=== PATIENT | male | born 1995 | race Caucasian/White ===

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

== ENCOUNTER 2017-05-12 08:44 | Emergency (ER) | payer OTHER ==
[2017-05-12 09:06] VITALS: BP 143/81
[2017-05-12] MEDS ORDERED: DIPHTH,PERTUSS(ACELL),TET VAC 0.5 ML VIAL IM ONE ×2 (09:06→09:15)
--- NOTE | 2017-05-12 10:16 | ERNOTE ---
Medical Problem HPI - Narrative Date of Service: 05/12/17 - General Chief Complaint: Laceration Time Seen by Provider: 05/12/17 09:50 Source: patient Exam Limitations: no limitations - Immun/Allergies/Home Medications Immunizations: IMMUNIZATION HX Immunizations Up to Date Yes Allergies/Adverse Reactions: Allergies No Known Allergies Allergy (Verified 05/12/17 09:05) Home Medications: HOME MEDICATIONS NK [No Home Medication] 07/28/13 [Last Taken Unknown] - History of Present History Narrative: Pt. comes in with c/o L lateral laceration to his Thumb due to a straight knife at work. Pt. denies any SOB, CP, NVD, fever, recent illness. Pt. states that he is not up to date on his tetanus vaccine. Review of Systems - Review of Systems Constitutional: Present: no symptoms reported. Absent: recent illness, fever, chills, weakness, fatigue, malaise, weight loss EYE: Present: no symptoms reported ENT: Present: no symptoms reported Respiratory: Present: no symptoms reported. Absent: shortness of breath, cough , wheezing Cardiology: Present: no symptoms reported. Absent: chest pain, palpitations, edema Musculoskeletal: Present: no symptoms reported. Absent: back pain, joint pain Skin: Present: other - laceration L lateral thumb Neurological: Present: no symptoms reported. Absent: headache, dizziness/light- headedness, numbness, tingling All Other Systems: All systems neg except as marked - Patient's Past Medical History Patient History - Medical: No pertinent hx Patient History - Cardiac/Respiratory: No pertinent hx Patient History - Cancer: No Hx of Cancer Patient History - Surgical Procedures: Ear Tubes - Family History Mother Family History - Medical: No pertinent hx Father Family History - Medical: No pertinent hx - Social History Living Situations: home Smoking Status: Current every day smoker Have you smoked in the past 12 months: Yes Alcohol Use: none Drug Use: none - Immunizations Immunizations Up to Date: Yes Physical Exam - Physical Exam General Appearance: Present: wd/wn, alert, no apparent distress Eye Exam: Normal inspection: bilateral, PERRL: bilateral, EOMI: bilateral Neck: Absent: lymphadenopathy (R), lymphadenopathy (L) Respiratory: Present: no respiratory distress, normal breath sounds, no accessory muscle use, chest nontender, lungs clear Cardiovascular/Chest: Present: regular rate, rhythm, no murmur, normal peripheral pulses Back Exam: Present: normal inspection Extremity Exam: Present: normal range of motion, no edema Neurological Exam: Present: alert, oriented, normal mood/affect, no motor/ sensory deficits, card tender II-XII nml as tested, normal cerebellar test Skin Exam: Present: normal color, warm/dry, other - laceration open superficial well approximated scant sanguinous drainage1 cm no closure needed ED Progress - Vital Signs Patient's Vital Signs:: I have reviewed the patient's vital signs. Vital Signs: Vital Signs 05/12/17 09:02 Temperature 37.6 C H Pulse Rate 88 Respiratory 14 Rate Blood Pressure 143/81 O2 Sat by Pulse 98 Oximetry - Progress/Reassessment Chief Complaint: Laceration Progress:: Unchanged Departure - Departure Clinical Impression: Laceration Disposition: Home self-care Condition: Good Instructions: Laceration Care, Adult, [id number] Additional Instructions: Please keep wound clean dry and covered. Please follow up with primary provider in 2-3 days. Referrals: Mary Jones MD [Primary Care Provider] -
== END 2017-05-12 10:05 | disposition home or self-care (01) ==
LOC: ER 08:44
DX: S61.012A Laceration without foreign body of left thumb without damage to nail, initial encounter (principal); F17.200 Nicotine dependence, unspecified, uncomplicated; W26.0XXA Contact with knife, initial encounter; Y93.89 Activity, other specified; Y92.69 Other specified industrial and construction area as the place of occurrence of the external cause; Y99.0 Civilian activity done for income or pay; Z23 Encounter for immunization